=== PATIENT | male | born 1970 | race Two or more races ===

== ENCOUNTER 2018-02-27 08:56 | Day surgery (SDC) | payer OTHER | END 2018-02-27 12:55 | disposition home or self-care (01) | LOC: AMB-ENDOS 08:56 | DX: K64.2 Third degree hemorrhoids (principal); Z12.11 Encounter for screening for malignant neoplasm of colon ==

== ENCOUNTER 2020-11-03 06:24 | Day surgery (SDC) | payer OTHER | END 2020-11-03 11:15 | disposition home or self-care (01) | LOC: AMB-ENDOS 06:24 | PROVIDERS: ATTEND Colon & Rectal Surgery | DX: K62.89 Other specified diseases of anus and rectum (principal); Z20.828 Contact with and (suspected) exposure to other viral communicable diseases; Z12.11 Encounter for screening for malignant neoplasm of colon; K64.1 Second degree hemorrhoids ==